=== PATIENT | female | born 1970 | race Two or more races ===

== ENCOUNTER 2020-06-04 04:24 | Emergency (ER) | payer OTHER ==
[2020-06-04] MEDS ORDERED: predniSONE 20 MG TABLET (UD) PO ONE (04:42)
[2020-06-04] MEDS ORDERED: diphenhydrAMINE HCL 25 MG CAPSULE (FP) PO ONE ×2 (04:42→04:47)
[2020-06-04 04:46] VITALS: BP 185/91; PULSE 72; TEMP 98.1; BMI 30.2
[2020-06-04] MEDS ORDERED: predniSONE 20 MG TABLET (UD) ONE (04:47)
== END 2020-06-04 04:56 | disposition home or self-care (01) ==
LOC: FER 04:24
DX: L25.0 Unspecified contact dermatitis due to cosmetics (principal)
CPT/HCPCS: 99283-25

== ENCOUNTER 2020-06-08 18:24 | Emergency (ER) | payer OTHER ==
[2020-06-08 18:29] VITALS: TEMP 98.1; BMI 28.3
[2020-06-08 19:00] VITALS: BP 187/82; PULSE 62
[2020-06-08] MEDS ORDERED: FAMOTIDINE 20 MG/50 ML IVPB 20 MG/50 ML MG IVPB ONE ×2 (19:38→19:41)
[2020-06-08] MEDS ORDERED: MECLIZINE HCL 25 MG TABLET (FP) PO ONE (19:38)
[2020-06-08] MEDS ORDERED: MECLIZINE HCL 25 MG TABLET (FP) ONE (19:41)
[2020-06-08 20:31] LABS: BASO % 1.8 % (0-2.0); EOS % 0.9 % (0-4.5); HEMATOCRIT 40.8 % (32.4-45.2); HEMOGLOBIN 13.3 GM/dl (10.7-15.3); LYMPH % 40.7 % (8-40); MCH 28.4 pg (25.7-33.7); MCHC 32.5 g/dl (32.0-36.0); MEAN CELL VOLUME 87.6 fl (80-96); MEAN PLT VOLUME 8.3 fl (7.5-11.1); NEUT % 46.6 % (42.8-82.8); PLATELET COUNT 369 K/MM3 (134-434); RBC 4.66 M/mm3 (3.60-5.2); RDW 14.3 % (11.6-15.6); WHITE BLOOD COUNT 13.6 K/mm3 (4.0-10.8)
[2020-06-08 20:44] LABS: ALBUMIN 4.2 g/dl (3.4-5.0); BILIRUBIN,TOTAL 0.5 mg/dl (0.2-1); CALCIUM 8.9 mg/dl (8.5-10); CREATININE 0.8 mg/dl (0.55-1.3); POTASSIUM 3.2 mmol/L (3.5-5.1); TOT PROT 7.6 g/dl (6.4-8.2)
== END 2020-06-08 21:15 | disposition home or self-care (01) ==
LOC: FER 18:24
PROC: 3E033NZ Introduction of Analgesics, Hypnotics, Sedatives into Peripheral Vein, Percutaneous Approach (ICD-10-PCS; principal; 2020-06-08)
DX: R10.13 Epigastric pain (principal)
CPT/HCPCS: 36415; 70450-TC; 80053; 84484; 85025; 93005; 99285-25